=== PATIENT | female | born 1990 | race Two or more races ===

== ENCOUNTER 2020-04-23 13:38 | Inpatient (IN) | payer OTHER ==
[~2020-04-23] VITALS: Ht 154.9 cm; Wt 3.6 kg
[2020-05-01] MEDS ORDERED: PRENATAL PO (15:42)
[2020-05-06] MEDS ORDERED: PEPCID (07:09)
[2020-05-06] MEDS ORDERED: PEPCID AC10 MG (11:12)
[2020-05-06] MEDS ORDERED: PRENATAL + DHA1 EAC1 PO (11:12)
== END 2020-05-09 13:16 | disposition home or self-care (01) | DRG 788 ==
LOC: OB/GYN 05-06 06:26 → LDR 05-06 06:26 → OB/GYN 05-06 12:00 → O/R 05-06 12:13 → OB/GYN 05-06 13:45
PROVIDERS: ADMIT Obstetrics & Gynecology; ATTEND Obstetrics & Gynecology
PROC: 4A1HXFZ Monitoring of Products of Conception, Cardiac Rhythm, External Approach (ICD-10-PCS; 2020-05-06)
PROC: 3E033VJ Introduction of Other Hormone into Peripheral Vein, Percutaneous Approach (ICD-10-PCS; 2020-05-06)
PROC: 10D00Z1 Extraction of Products of Conception, Low, Open Approach (ICD-10-PCS; principal; 2020-05-06 13:45)
DX: O34.211 Maternal care for low transverse scar from previous cesarean delivery (principal); Z3A.39 39 weeks gestation of pregnancy; Z37.0 Single live birth

== ENCOUNTER 2024-11-06 05:21 | Day surgery (SDC) | payer OTHER ==
[2024-11-02 12:09] VITALS: BP 121/72
[~2024-11-06] VITALS: Ht 154.9 cm; Wt 66.2 kg
[~2024-11-06 05:21] MED LIST: PEPCID; PEPCID AC10 MG; PRENATAL + DHA1 EAC1 PO; PRENATAL PO
[2024-11-06] MEDS ORDERED: KETOROLAC TROMETHAMINE 30 MG VIAL IV ONE (13:00)
[2024-11-06] MEDS ORDERED: ONDANSETRON HCL 2 MG/ML VIAL IV ONE (13:00)
[2024-11-06] MEDS ORDERED: MORPHINE SULFATE 4 MG/ML VIAL IV ONE (14:10)
== END 2024-11-06 16:30 | disposition home or self-care (01) ==
LOC: CIR.AMB 05:21
PROVIDERS: ATTEND Obstetrics & Gynecology
DX: N70.91 Salpingitis, unspecified (principal); R10.2 Pelvic and perineal pain; Z91.013 Allergy to seafood; G43.909 Migraine, unspecified, not intractable, without status migrainosus; K21.9 Gastro-esophageal reflux disease without esophagitis

== ENCOUNTER 2024-11-08 20:26 | Emergency (ER) | payer OTHER ==
[~2024-11-08] VITALS: Ht 154.9 cm; Wt 66.2 kg
[2024-11-08] MEDS ORDERED: KETOROLAC TROMETHAMINE 60 MG VIAL IM STA (21:52)
[2024-11-08] MEDS ORDERED: ORPHENADRINE CITRATE 30 MG/ML AMPUL IM STA (21:53)
[2024-11-08] MEDS ORDERED: OxyCODONE HCL/APAP UD (PERCOCET) PO STA (21:54)
[2024-11-08] MEDS ORDERED: DEXAMETHASONE SODIUM PHOSPHATE 4 MG/ML VIAL IM STA (21:54)
[2024-11-08] MEDS ORDERED: DEXAMETHASONE SODIUM PHOSPHATE 4 MG/ML VIAL ONE (22:31)
[2024-11-08] MEDS ORDERED: KETOROLAC TROMETHAMINE 60 MG VIAL IM ONE (22:31)
[2024-11-08] MEDS ORDERED: ORPHENADRINE CITRATE 30 MG/ML AMPUL ONE (22:31)
== END 2024-11-08 22:47 | disposition home or self-care (01) ==
LOC: ER 20:27
DX: G24.3 Spasmodic torticollis (principal); Z91.013 Allergy to seafood